=== PATIENT | female | born 1985 | race American Indian/Alaskan Native ===

== ENCOUNTER 2017-06-25 19:35 | Emergency (ER) | payer SELFPAY ==
[2017-06-25 23:54] VITALS: BP 147/76
== END 2017-06-26 | disposition left against medical advice (07) ==
LOC: ED 19:35
DX: M54.9 Dorsalgia, unspecified (principal); Z53.21 Procedure and treatment not carried out due to patient leaving prior to being seen by health care provider

== ENCOUNTER 2017-10-17 12:35 | Emergency (ER) | payer SELFPAY ==
[2017-10-17 12:39] VITALS: BP 141/72
--- NOTE | 2017-10-17 13:52 | Emergency Department Report ---
HPI - General Chief Complaint: Dental/Oral Time Seen by Provider: 10/17/17 13:47 - HPI HPI: 22-year-old with right upper molar area tooth pain. Symptoms has been there for the past 3 days worse today. No fever orswelling no difficulty eating. ED Past Medical Hx - Past Medical History Previous Medical History?: No Hx Hypertension: No Hx CVA: No Additional medical history: brother states that pt has cancer, pt denies - Surgical History Additional Surgical History: D&C, Jaw surgery, C/S - Social History Smoking Status: Current Every Day Smoker Substance Use Type: None - Medications Home Medications: Home Medications Medication Instructions Recorded Confirmed Last Taken Type Ketorolac [Toradol] 10 mg PO Q6H PRN #20 tablet 10/17/17 Unknown Rx ED Review of Systems ROS: Stated complaint: TOOTHACHE Other details as noted in HPI Constitutional: no symptoms reported ENT: dental pain Respiratory: no symptoms reported Cardiovascular: as per HPI Physical Exam - Physical Exam Vital Signs: Vital Signs 10/17/17 12:36 Temperature 98.1 F Pulse Rate 85 Respiratory 16 Rate Blood Pressure 141/72 O2 Sat by Pulse 99 Oximetry Physical Exam: Gen. alert and oriented 3 in no distress Head atraumatic normocephalic Eyes PERR LA EOMI Chest regular rate and rhythm normal S1-S2 lungs clear bilaterally Abdomen soft nondistended Back no point tenderness paravertebral tenderness Neuro no focal deficit. Psych normal mood. Dental: Right upper molar area, wisdom tooth with no surrounding erythema or abscess. ED Course Vital Signs 10/17/17 12:36 Temperature 98.1 F Pulse Rate 85 Respiratory 16 Rate Blood Pressure 141/72 O2 Sat by Pulse 99 Oximetry Critical care attestation.: If time is entered above; I have spent that time in minutes in the direct care of this critically ill patient, excluding procedure time. ED Disposition Clinical Impression: Pain, dental Disposition: DC- TO HOME OR SELFCARE Is pt being admited?: No Does the pt Need Aspirin: No Condition: Stable Prescriptions: Ketorolac [Toradol] 10 mg PO Q6H PRN #20 tablet PRN Reason: Pain Referrals: PRIMARY CARE, [Primary Care Provider] - 3-5 Days
== END 2017-10-17 13:57 | disposition home or self-care (01) ==
LOC: ED 12:35
DX: K08.89 Other specified disorders of teeth and supporting structures (principal); F17.200 Nicotine dependence, unspecified, uncomplicated; Z88.0 Allergy status to penicillin
CPT/HCPCS: 99282

== ENCOUNTER 2017-11-11 10:53 | Emergency (ER) | payer SELFPAY ==
[2017-11-11 11:45] VITALS: BP 128/81
[2017-11-11] MEDS ORDERED: TYLENOL ONE (13:28)
[2017-11-11] MEDS ORDERED: MOTRIN PO ONE ×2 (13:29→13:31)
[2017-11-11] MEDS ORDERED: TYLENOL PO ONE (13:31)
--- NOTE | 2017-11-11 13:33 | Emergency Department Report ---
ED General Adult HPI - General Chief complaint: Back Pain/Injury Stated complaint: BACK PAIN Time Seen by Provider: 11/11/17 13:33 Source: patient Mode of arrival: Ambulatory Limitations: No Limitations - History of Present Illness Initial comments: She is a 32-year-old female no significant past medical history who presents with lower back pain that's been going on for the last 2 weeks. Patient states lower back pain is located in the lower portion of her back. Radiates to her knee her right knee. It's achy type of pain it's a 7 out of 10. Nothing makes it better and nothing makes it worse. Patient denies having any trauma or any dysuria or any saddle anesthesia. Severity scale (0 -10): 6 - Related Data Previous Rx's Medication Instructions Recorded Last Taken Type Ketorolac [Toradol] 10 mg PO Q6H PRN #20 tablet 10/17/17 Unknown Rx Diclofenac Sodium [Voltaren] 100 gm TP Q6H #1 gel..gram. 11/11/17 Unknown Rx Allergies Allergy/AdvReac Type Severity Reaction Status Date / Time Penicillins Allergy Hives Verified 10/17/17 12:36 ED Review of Systems ROS: Stated complaint: BACK PAIN Other details as noted in HPI Constitutional: denies: chills, fever Eyes: denies: eye pain, eye discharge, vision change ENT: denies: ear pain, throat pain Respiratory: denies: cough, shortness of breath, wheezing Cardiovascular: denies: chest pain, palpitations Endocrine: no symptoms reported Gastrointestinal: denies: abdominal pain, nausea, diarrhea Genitourinary: denies: urgency, dysuria, discharge Musculoskeletal: back pain. denies: joint swelling, arthralgia Skin: denies: rash, lesions Neurological: denies: headache, weakness, paresthesias Psychiatric: denies: anxiety, depression Hematological/Lymphatic: denies: easy bleeding, easy bruising ED Past Medical Hx - Past Medical History Hx Hypertension: No Hx CVA: No Additional medical history: brother states that pt has cancer, pt denies - Surgical History Additional Surgical History: D&C, Jaw surgery, C/S - Social History Smoking Status: Current Every Day Smoker Substance Use Type: None - Medications Home Medications: Home Medications Medication Instructions Recorded Confirmed Last Taken Type Ketorolac [Toradol] 10 mg PO Q6H PRN #20 tablet 10/17/17 Unknown Rx Diclofenac Sodium [Voltaren] 100 gm TP Q6H #1 gel..gram. 11/11/17 Unknown Rx ED Physical Exam - General Limitations: No Limitations General appearance: alert, in no apparent distress - Head Head exam: Present: atraumatic, normocephalic - Eye Eye exam: Present: normal appearance - ENT ENT exam: Present: mucous membranes moist - Neck Neck exam: Present: normal inspection - Respiratory Respiratory exam: Present: normal lung sounds bilaterally. Absent: respiratory distress - Cardiovascular Cardiovascular Exam: Present: regular rate, normal rhythm. Absent: systolic murmur, diastolic murmur, rubs, gallop - GI/Abdominal GI/Abdominal exam: Present: soft, normal bowel sounds - Extremities Exam Extremities exam: Present: normal inspection - Back Exam Back exam: Present: normal inspection - Neurological Exam Neurological exam: Present: alert, oriented X3 - Psychiatric Psychiatric exam: Present: normal affect, normal mood - Skin Skin exam: Present: warm, dry, intact, normal color. Absent: rash ED Course Vital Signs 11/11/17 11:40 Temperature 98.3 F Pulse Rate 92 H Respiratory 16 Rate Blood Pressure 128/81 O2 Sat by Pulse 99 Oximetry ED Medical Decision Making - Medical Decision Making Chief medical diagnosis: Lumbar sacral strain Differential diagnosi slipped disc, psoas muscle strain I'll give patient oral pain medication and Voltaren cream to be placed on her back and referral for primary care doctor. Discussed plan with patient and patient agrees additional verbal discharge instructions were given. s: Critical care attestation.: If time is entered above; I have spent that time in minutes in the direct care of this critically ill patient, excluding procedure time. ED Disposition Clinical Impression: Lower back pain Qualifiers: Chronicity: acute Back pain laterality: unspecified Sciatica presence: with sciatica Sciatica laterality: sciatica of right side Qualified Code(s): M54.41 - Lumbago with sciatica, right side Disposition: - TO HOME OR SELFCARE Is pt being admited?: No Does the pt Need Aspirin: No Condition: Stable Instructions: Low Back Strain (ED) Prescriptions: Diclofenac Sodium [Voltaren] 100 gm TP Q6H #1 gel..gram. Referrals: MEL COLE MD [Staff Physician] - 3-5 Days
== END 2017-11-11 14:24 | disposition home or self-care (01) ==
LOC: ED 10:53
DX: M54.5 Low back pain (principal); Z88.0 Allergy status to penicillin; F17.200 Nicotine dependence, unspecified, uncomplicated
CPT/HCPCS: 99282